=== PATIENT | male | born 1950 | race Caucasian/White ===

== ENCOUNTER 2017-05-31 18:52 | Emergency (ER) | payer OTHER ==
[~2017-05-31] VITALS: Ht 182.9 cm; Wt 88.0 kg
[~2017-05-31 18:52] MED LIST: CRD4 PO; METO25TA56 PO; MINO100C22 PO; SILD1TAB11 PO
[2017-05-31 19:55] VITALS: TEMP 37; Ht 182.9 cm; Wt 88.0 kg
[2017-05-31] MEDS ORDERED: SODIUM CHLORIDE 0.9% 1000ML 500 ML IV ONE (20:44)
[2017-05-31] MEDS ORDERED: HYDR2.5C37 TOP (21:01)
[2017-05-31] MEDS ORDERED: DOXA4TAB2 PO (21:01)
[2017-05-31] MEDS ORDERED: SULF800T23 PO (21:01)
[2017-05-31] MEDS ORDERED: SILD100T PO (21:02)
[2017-05-31] MEDS ORDERED: MULT-513 PO (21:02)
[2017-05-31 21:17] LABS: HEMATOCRIT 40.1 % (42-52); MEAN CELL VOLUME 91.1 fL (80-100); MEAN CORPUSCULAR HEMOGLOBIN 31.6 pg (25-34); MEAN CORPUSCULAR HGB CONC 34.7 g/dl (32-36); MEAN PLATELET VOLUME 9.9 fL (7.4-10.4); PLATELET COUNT 204 K/uL (130-400); WHITE BLOOD COUNT 9.94 K/uL (4.8-10.8)
[2017-05-31 21:19] LABS: MANUAL MICROSCOPIC REQUIRED? NO; REVIEW REQ? NO; URINE APPEARANCE CLEAR (CLEAR); URINE BILIRUBIN NEG (NEG); URINE COLOR YELLOW; URINE NITRITE NEG (NEG); URINE SPECIFIC GRAVITY 1.016 (1.000-1.030); UROBILINOGEN NEG (NEG); ZZUR CULT IF INDIC CLEAN CATCH NO
[2017-05-31 21:44] LABS: BUN/CREATININE RATIO 19.2 (10-20); CALCIUM 9.2 mg/dl (8.5-10.1); CREATININE 1.4 mg/dl (0.60-1.40); POTASSIUM 4.2 mmol/L (3.5-5.1)
--- NOTE | 2017-05-31 22:12 | DIAGNOSTIC IMAGING REPORT ---
ABD/PELVIS WITHOUT FOR STONE CLINICAL HISTORY: 67 years-old Male presenting with left flank pain, hx stones. TECHNIQUE: Multidetector CT of the abdomen and pelvis was performed without the use of intravenous contrast. IV contrast: None. A dose lowering technique was used consistent with the principles of ALARA (as low as reasonably achievable). COMPARISON: 07/05/2010. CT DOSE (mGy.cm): The estimated cumulative dose is 418.04 mGy.cm. FINDINGS: Retail Project Merchandiser topogram: Unremarkable. Lung bases: Minimal dependent changes likely atelectasis. 3 mm solid pulmonary nodule in the left lower lobe (series 3 image 2). Normal heart size. No pericardial or pleural effusion. Liver: Normal morphology. Normal density. Biliary: Prominence of the central intrahepatic and extrahepatic bile ducts likely a consequence of a reservoir effect in the post cholecystectomy state. Gallbladder surgically absent. Pancreas: Mild parenchymal atrophy. Previously noted acute pancreatic fluid collections/walled off the gross this are no longer present. No peripancreatic fat stranding to suggest pancreatitis. Coarse calcification in the pancreatic head/uncinate may relate to chronic pancreatitis. Spleen: Normal noncontrast appearance. Adrenal glands: Normal noncontrast appearance. Kidneys and ureters: Left renal collecting system is dilated with left perinephric fat stranding. Obstructing 4 mm calculus at the left ureterovesical junction with mild dilatation of the left ureter and periureteral fat stranding. No additional left renal calculus is noted. Right extrarenal pelvis. Punctate nonobstructing right renal calculus in the interpolar region. Right ureter normal. Bladder: No bladder calculus. Bladder normal. Pelvic organs: Prostate enlargement likely secondary to benign prostatic hyperplasia. Bowel: Diverticulosis of the sigmoid colon with associated wall thickening consistent with chronic diverticular disease. No pericolonic fat infiltration to suggest diverticulitis. Normal appendix. No bowel obstruction. Peritoneal cavity: No free fluid or intraperitoneal gas. Vasculature: Atherosclerosis of the normal caliber abdominal aorta. Lymph nodes: No gross lymphadenopathy allowing for noncontrast technique. Abdominal wall: Postsurgical changes of the midline ventral hernia repair. Small fat-containing umbilical hernia. Postsurgical changes of right inguinal hernia repair. Musculoskeletal: Degenerative changes of the spine. IMPRESSION: 1. Obstructing 4 mm calculus at the left ureterovesical junction with resultant left hydroureteronephrosis. 2. 3 mm solid pulmonary nodule in the left lower lobe. Follow-up per Sebastian Society 2017 recommendations below. Please refer to below summary of Fleischner Society 2017 recommendations for follow-up of incidental CT nodules (Chandler Levy et al. Guidelines for management of incidental pulmonary nodules detected on CT images: From the Fleischner Society 2017. Radiology 2017; 284: 228-243.) SOLID NODULES Single nodule; size < 6 mm * Low risk patients: No routine follow-up * High risk patients: Optional CT at 12 months Single nodule; size 6-8 mm * Low risk patients: CT at 6-12 months, then consider CT at 18-24 months * High risk patients: CT at 6-12 months, then at 18-24 months Single nodule; size > 8 mm * Either low or high risk patients: Considered CT at 3 months, PET/CT, or tissue sampling Multiple nodules; size < 6 mm * Low risk patients: No routine follow up * High risk patients: Optional CT at 12 months Multiple nodules; size 6-8 mm * Low risk patients: CT at 3-6 months, then consider CT at 18-24 months * High risk patients: CT at 3-6 months, then at 18-24 months Multiple nodules; size > 8 mm * Low risk patients: CT at 3-6 months, then consider at 18-24 months * High risk patients: CT at 3-6 months, then at 18-24 months Note: These guidelines apply to incidental nodules. These guidelines do not apply to patients younger than 35 years, immunocompromised patients, or patients with cancer. * Low risk patients: Minimal or absent history of smoking and/or other known risk factors * High risk patients: History of smoking, exposure to other carcinogens, emphysema, fibrosis, upper lobe location, family history of lung cancer, etc. * If a nodule up to 8 mm is partly solid or is ground glass, further follow-up is required after 24 months to exclude possible slow growing adenocarcinoma. SUBSOLID NODULES Single ground-glass nodule * Nodule size < 6 mm: No routine follow-up * Nodule size > or = 6 mm: CT at 6-12 months to confirm persistence, then CT every 2 years until 5 years Single part-solid nodule * Nodule size < 6 mm: No routine follow-up * Nodules size > or = 6 mm: CT at 3-6 months to confirm persistence. If unchanged and solid component remains < 6 mm, annual CT should be performed for 5 years Multiple nodules * Nodule size < 6 mm: CT at 3-6 months. If stable, consider CT at 2 and 4 years. * Nodules size > or = 6 mm: CT at 3-6 months. Subsequent management based on the most suspicious nodule(s) Electronically signed by: Raffi George M.D. 05/31/2017 10:11 PM Dictated Date/Time: 05/31/2017 10:04 PM
[2017-05-31] MEDS ORDERED: OXYCODONE IR HOME PACK PO ONE (22:45)
[2017-05-31] MEDS ORDERED: ONDANSETRON HOME PACK 4MG OD TAB PO ONE (22:45)
[2017-05-31] MEDS ORDERED: TAMSULOSIN HCL 0.4 MG CAP PO ONE (22:45)
[2017-05-31] MEDS ORDERED: OXYC1TAB3 PO (22:47)
[2017-05-31] MEDS ORDERED: ONDA4TAB10 SL (22:47)
[2017-05-31] MEDS ORDERED: TAMS0.4C38 PO (22:47)
--- NOTE | 2017-05-31 22:49 | EMERGENCY ROOM VISIT NOTE ---
History First contact with patient: 21:10 Chief Complaint: KIDNEY STONE Stated Complaint: KIDNEY STONE History of Present Illness The patient is a 67 year old male who presents to the Emergency Room with complaints of left flank pain which began 2 nights ago. The patient states that he had severe left flank pain at that time. He states that his symptoms improved, but worsened again today. He has had pain in the left side of the back. The pain does not radiate anywhere. He denies nausea or vomiting. He denies any urinary symptoms. The patient reports a history of kidney stones and feels similar. He has seen [facility] urology in the past, but has not seen them for several years. The patient also reports a history of pancreatitis. He denies fevers/chills, chest pain or shortness of breath. He denies changes in bowel movements. Review of Systems A complete 10 point review of systems was reviewed with the patient with pertinent positives and negatives as per history of present illness. All else were negative. Past Medical/Surgical History Medical Problems: (1) Acute Renal Failure, Unspecified (2) Esophageal Reflux (3) Hypertension Nos (4) Unilat Inguinal Hernia Family History Cancer Heart disease Hypertension Stroke Social History Smoking Status: Never Smoker Marital Status: Housing Status: lives with family Occupation Status: retired Current/Historical Medications Scheduled Doxazosin Mesylate (Cardura), 4 MG PO HS Metoprolol Tartrate (Lopressor) (Lopressor), 12.5 MG PO DAILY Multivitamins/Minerals (Mvi With Minerals), 1 TAB PO DAILY Ondasetron Odt (Zofran Odt), 4 MG SL Q6H Sildenafil Citrate (Viagra), 100 MG PO PRN Sulfa/Trimethoprim (Bactrim Ds 800MG/160MG), 1 TAB PO BID Tamsulosin Hcl (Flomax), 1 CAP PO DAILY Scheduled PRN Hydrocortisone 2.5% (Rectal) (Anusol-Hc 2.5%), 1 APPLN TOP BID PRN for Hemorrhoids Oxycodone Ir (Roxicodone Ir), 1-2 TAB PO Q4H PRN for Pain Physical Exam Vital Signs Date Time Temp Pulse Resp B/P (MAP) Pulse Ox O2 Delivery O2 Flow Rate FiO2 05/31/17 23:09 63 18 142/93 96 Room Air 05/31/17 21:15 55 20 142/81 97 Room Air 05/31/17 19:55 37.0 55 20 155/86 97 Room Air Physical Exam VITALS: Vitals are noted on the nurse's note and reviewed by myself. Vital signs stable. GENERAL: This is a 67-year-old male, in no acute distress, nondiaphoretic, well- developed well-nourished. HEART: Regular rate and rhythm without murmurs gallops or rubs. LUNGS: Clear to auscultation bilaterally without wheezes, rales or rhonchi. ABDOMEN: Positive bowel sounds x 4. Soft, nontender to palpation. MUSCULOSKELETAL: Left CVA tenderness. NEURO: Patient was alert and oriented to person place and time. Medical Decision & Procedures ER Provider Diagnostic Interpretation: ABD/PELVIS WITHOUT FOR STONE FINDINGS: Sql Bi Developer topogram: Unremarkable. Lung bases: Minimal dependent changes likely atelectasis. 3 mm solid pulmonary nodule in the left lower lobe (series 3 image 2). Normal heart size. No pericardial or pleural effusion. Liver: Normal morphology. Normal density. Biliary: Prominence of the central intrahepatic and extrahepatic bile ducts likely a consequence of a reservoir effect in the post cholecystectomy state. Gallbladder surgically absent. Pancreas: Mild parenchymal atrophy. Previously noted acute pancreatic fluid collections/walled off the gross this are no longer present. No peripancreatic fat stranding to suggest pancreatitis. Coarse calcification in the pancreatic head/uncinate may relate to chronic pancreatitis. Spleen: Normal noncontrast appearance. Adrenal glands: Normal noncontrast appearance. Kidneys and ureters: Left renal collecting system is dilated with left perinephric fat stranding. Obstructing 4 mm calculus at the left ureterovesical junction with mild dilatation of the left ureter and periureteral fat stranding. No additional left renal calculus is noted. Right extrarenal pelvis. Punctate nonobstructing right renal calculus in the interpolar region. Right ureter normal. Bladder: No bladder calculus. Bladder normal. Pelvic organs: Prostate enlargement likely secondary to benign prostatic hyperplasia. Bowel: Diverticulosis of the sigmoid colon with associated wall thickening consistent with chronic diverticular disease. No pericolonic fat infiltration to suggest diverticulitis. Normal appendix. No bowel obstruction. Peritoneal cavity: No free fluid or intraperitoneal gas. Vasculature: Atherosclerosis of the normal caliber abdominal aorta. Lymph nodes: No gross lymphadenopathy allowing for noncontrast technique. Abdominal wall: Postsurgical changes of the midline ventral hernia repair. Small fat-containing umbilical hernia. Postsurgical changes of right inguinal hernia repair. Musculoskeletal: Degenerative changes of the spine. IMPRESSION: 1. Obstructing 4 mm calculus at the left ureterovesical junction with resultant left hydroureteronephrosis. 2. 3 mm solid pulmonary nodule in the left lower lobe. Follow-up per Sebastian Society 2017 recommendations below. Laboratory Results 05/31/17 21:00 05/31/17 21:00 Test 05/31/17 21:00 Red Blood Count 4.40 M/uL (4.7-6.1) Mean Corpuscular Volume 91.1 fL (80-100) Mean Corpuscular Hemoglobin 31.6 pg (25-34) Mean Corpuscular Hemoglobin Concent 34.7 g/dl (32-36) RDW Standard Deviation 43.1 fL (36.4-46.3) RDW Coefficient of Variation 12.8 % (11.5-14.5) Mean Platelet Volume 9.9 fL (7.4-10.4) Urine Color YELLOW Urine Appearance CLEAR (CLEAR) Urine pH 7.0 (4.5-7.5) Urine Specific Model 1.016 (1.000-1.030) Urine Protein NEG (NEG) Urine Glucose (UA) NEG (NEG) Urine Ketones NEG (NEG) Urine Occult Blood 3+ (NEG) Urine Nitrite NEG (NEG) Urine Bilirubin NEG (NEG) Urine Urobilinogen NEG (NEG) Urine Leukocyte Esterase TRACE (NEG) Urine WBC (Auto) 1-5 /hpf (0-5) Urine RBC (Auto) 10-30 /hpf (0-4) Urine Hyaline Casts (Auto) 0 /lpf (0-5) Urine Epithelial Cells (Auto) 5-10 /lpf (0-5) Urine Bacteria (Auto) NEG (NEG) Anion Gap 7.0 mmol/L (3-11) Est Creatinine Clear Calc Drug Dose 56.2 ml/min Estimated GFR () 59.8 Estimated GFR (Non- 51.6 BUN/Creatinine Ratio 19.2 (10-20) Calcium Level 9.2 mg/dl (8.5-10.1) Total Bilirubin 0.5 mg/dl (0.2-1) Direct Bilirubin 0.1 mg/dl (0-0.2) Aspartate Amino Transf (AST/SGOT) 21 U/L (15-37) Alanine Aminotransferase (ALT/SGPT) 25 U/L (12-78) Alkaline Phosphatase 74 U/L (45-117) Total Protein 7.6 gm/dl (6.4-8.2) Albumin 4.1 gm/dl (3.4-5.0) Medications Administered Medications (Trade) Dose Ordered Sig/Quintin Route Start Time Stop Time Status Last Admin Dose Admin Sodium Chloride 500 ml @ 999 mls/hr Q31M ONCE IV 05/31/17 20:44 05/31/17 21:14 DC 05/31/17 21:12 999 MLS/HR Oxycodone HCl (Roxicodone Immediate Rel 5MG Home Pack) 1 homepack UD ONCE PO 05/31/17 22:45 05/31/17 22:46 DC 05/31/17 23:06 1 HOMEPACK Ondansetron HCl (ZOFRAN ODT 4MG Home Pack) 1 homepack UD ONCE PO 05/31/17 22:45 05/31/17 22:46 DC 05/31/17 23:06 1 HOMEPACK Tamsulosin HCl (Flomax Cap) 0.4 mg NOW ONCE PO 05/31/17 22:45 05/31/17 22:46 DC 05/31/17 23:06 0.4 MG ED Course The patient was evaluated as above. Labs were drawn and IV access was obtained. Patient was reevaluated and findings were discussed. Discharge instructions were reviewed with the patient. The patient verbalized understanding of my assessment and treatment plan and was discharged home in good condition. Medical Decision Differential diagnosis includes kidney stone, pyelonephritis, muscle strain, gastroenteritis, colitis, diverticulitis, cholecystitis, among others. The patient is a 67-year-old male who presents today complaining of left flank pain. Labs revealed no leukocytosis, anemia or concerning electrolyte abnormalities. Urinalysis was not suggestive of infection. Urine did show 3+ blood. CT of the abdomen and pelvis was performed and read by radiology and revealed a 4 mm stone at the left UVJ. Patient was informed of this finding. He is given home packs and prescriptions for Zofran and OxyIR. He was given a dose of Flomax. He was given information for urology follow-up. He was advised he may return at any time if his pain becomes unmanageable at home. Based on the patient's presentation and work up, I feel the patient is stable for outpatient treatment. The patient was educated to return to the emergency department for any worsening of their current condition or new/concerning symptoms. He will follow up with his primary care provider and urologist. [place] [facility] Monitoring Program Search Results: patient reviewed within database Medication Reconcilliation Current Medication List: was personally reviewed by me Blood Pressure Screening Patient's blood pressure: Elevated blood pressure Blood pressure disposition: Elevated BP felt to be situational Impression Primary Impression: Ureteral stone Departure Information Dispostion Home / Self-Care Condition GOOD Prescriptions Tamsulosin Hcl (FLOMAX) 0.4 Mg Cap 1 CAP PO DAILY for 14 Days, #14 CAP Prov: Cindi Molina PA-C 05/31/17 Ondasetron Odt (ZOFRAN ODT) 4 Mg Tab 4 MG SL Q6H for Nausea, #20 TAB Prov: Cindi Molina PA-C 05/31/17 Oxycodone Ir (Roxicodone Ir) 5 Mg Tab 1-2 TAB PO Q4H Y for Pain, #20 TAB For Initial Treatment Prov: Cindi Molina PA-C 05/31/17 Referrals No Doctor, Assigned (PCP) Lilly Sherman MD Patient Instructions [facility] Additional Instructions You have been treated in the Emergency Department today for a Kidney Stone ( Nephrolithiasis). You have been prescribed Oxy IR to be used for pain control. This is a narcotic medication. You cannot drive or consume alcohol while on this medicine. This medicine should only be used for pain that cannot be controlled with over-the- counter pain medicines. You have been prescribed Zofran to be used for any nausea or vomiting. Take as prescribed. You have been prescribed Flomax 0.4 mg to be taken ONCE daily. This medicine has been prescribed as it can help relax the smooth muscles of the urinary tract increasing transit time of the kidney stone. For pain control, you can use the following [id number] medicines (if >12 yo): - Regular strength (325mg/tab) Tylenol (acetaminophen) 2 tabs every 4-6 hours as needed. Do not exceed 12 tablets in a 24 hour period. Avoid taking more than 4 grams (4000 mg) of Tylenol per day. This includes any other sources of acetaminophen you may take on a regular basis. - Regular strength (200 mg/tab) Advil (ibuprofen) 1-2 tabs every 4-6 hours as needed. Do not exceed a dose of 3200 mg per day. You have been provided a strainer and specimen collection cup. You should strain your urine to collect any passed stones. Your stones can be placed into the specimen cup and taken to your Urologist for further evaluation. You have been provided the contact information for [facility]. Contact a urologist if you are still having any symptoms in the next week. Return to the Emergency Department if your symptoms persist despite the treatment plan outlined above or if you develop the following symptoms: intractable pain, fever, chills, or large amounts of blood in your urine.
[2017-05-31 23:09] VITALS: BP 142/93; PULSE 63; O2SAT 96
== END 2017-05-31 23:13 | disposition home or self-care (01) ==
LOC: C.EDB 18:53 → C.EDA 23:13
DX: N21.1 Calculus in urethra (principal); N19 Unspecified kidney failure; K21.9 Gastro-esophageal reflux disease without esophagitis; I10 Essential (primary) hypertension; Z82.49 Family history of ischemic heart disease and other diseases of the circulatory system; Z82.3 Family history of stroke

== ENCOUNTER 2017-06-17 08:33 | Inpatient (IN) | payer OTHER ==
[~2017-06-17] VITALS: Ht 182.9 cm; Wt 88.2 kg
[~2017-06-17 08:33] MED LIST changes: -CRD4 PO; +DOXA4TAB2 PO; +HYDR2.5C37 TOP; -MINO100C22 PO; +MULT-513 PO; +ONDA4TAB10 SL; +OXYC1TAB3 PO; +SILD100T PO; -SILD1TAB11 PO; +SULF800T23 PO
[2017-06-17] MEDS ORDERED: MoRPHine SULFATE 4 MG/ML 1 ML CARP\\VIAL IV STA ×2 (09:06→10:06)
[2017-06-17] MEDS ORDERED: ONDANSETRON INJ 2 MG/ML 2 ML VIAL IV STA (09:06)
[2017-06-17] MEDS ORDERED: OPTIRAY 320 IV PRN (09:30)
[2017-06-17 09:47] LABS: BASO % 0.2 %; BASO ABS # 0.02 K/uL (0-0.2); COMPLETE YES; EOS % 0.6 %; HEMATOCRIT 43.9 % (42-52); IG% 0.1 %; LYMPH ABS # 0.88 K/uL (1.2-3.4); MEAN CORPUSCULAR HEMOGLOBIN 31.8 pg (25-34); MEAN CORPUSCULAR HGB CONC 35.3 g/dl (32-36); MEAN PLATELET VOLUME 9.7 fL (7.4-10.4); MONO % 4.4 %; NEUT % 84.7 %; PLATELET COUNT 169 K/uL (130-400); RED BLOOD COUNT 4.88 M/uL (4.7-6.1); WHITE BLOOD COUNT 8.83 K/uL (4.8-10.8)
[2017-06-17 10:04] LABS: ALT/SGPT 29 U/L (12-78); BLOOD UREA NITROGEN 24 mg/dl (7-18); BUN/CREATININE RATIO 20.1 (10-20); CALCIUM 9.1 mg/dl (8.5-10.1); CARBON DIOXIDE 26 mmol/L (21-32); CHLORIDE 109 mmol/L (98-107); GLUCOSE 109 mg/dl (70-99); MAGNESIUM 2.2 mg/dl (1.8-2.4); POTASSIUM 4.4 mmol/L (3.5-5.1); SODIUM 140 mmol/L (136-145)
[2017-06-17 10:10] LABS: ALB/GLOB RATIO 1.2 (0.9-2); ALKALINE PHOSPHATASE 72 U/L (45-117); AST/SGOT 24 U/L (15-37); CKMB/CK RATIO 1.1 (0-3.0)
[2017-06-17] MEDS ORDERED: HYDROmorphone INJ 1 MG/ML SYR IV STA (10:37)
--- NOTE | 2017-06-17 12:22 | DIAGNOSTIC IMAGING REPORT ---
ABD/PELVIS IV AND ORAL CONT CLINICAL HISTORY: 67 years-old Male presenting with Epigastric abdominal pain radiating inferiorly, history of pancreatitis. TECHNIQUE: Multidetector CT of the abdomen and pelvis was performed after the administration of oral and intravenous contrast. IV contrast: 93 mL of Optiray 320. A dose lowering technique was used consistent with the principles of ALARA (as low as reasonably achievable). COMPARISON: 05/31/2017. CT DOSE (mGy.cm): The estimated cumulative dose is 482.79 mGy.cm. FINDINGS: Parts Consultant topogram: Cholecystectomy clips. Lung bases: 3 mm solid pulmonary nodule in the left lower lobe again noted. Aortic valve calcification. Normal heart size. No pericardial or pleural effusion. Liver: Normal morphology. No liver lesion. Patent hepatic vasculature. Biliary: Interval development of diffuse mild intrahepatic biliary ductal dilatation. The common duct is also slightly dilated to the level of the pancreatic head. Gallbladder surgically absent. Pancreas: Interval development of peripancreatic fluid and inflammatory change with heterogeneity and expansion of the pancreatic parenchyma. A focal hypodense region in the anterior pancreatic head (series 2 image 33) was likely present on prior exam and is not convincing for an pancreatic parenchymal collection. Few foci of calcification within the uncinate the pancreatic head likely indicating a history of chronic pancreatitis. No significant pancreatic ductal dilatation. Spleen: Normal. Splenule noted. Splenic artery and vein patent. Adrenal glands: Normal. Kidneys and ureters: Well-defined hypodensity in the right kidney compatible with simple cyst. No hydronephrosis. Normal ureters. Bladder: Mild circumferential bladder wall thickening. No perivesicular inflammatory change. Pelvic organs: Prostate enlargement likely secondary to benign prostatic hyperplasia. Postsurgical changes of vasectomy suspected. Bowel: Diverticulosis with wall thickening of the sigmoid colon likely indicating chronic diverticular disease. Mild wall thickening of the hepatic flexure is most likely secondary. Wall thickening of the descending portion of the duodenum also likely secondary. Appendix normal. No bowel obstruction. Duodenal diverticulum noted posterior to the uncinate process of the pancreas. Peritoneal cavity: Small amount of retroperitoneal fluid in the periduodenal region emanating from the pancreas. No free intraperitoneal fluid or gas. Lymph nodes: No enlarged lymph nodes in the abdomen or pelvis. Vasculature: Atherosclerosis of the normal caliber abdominal aorta. IVC patent. Abdominal wall: Postsurgical changes from prior right hernia repair. Postsurgical changes from ventral abdominal wall hernia repair in the upper gastric and. Musculoskeletal: Degenerative changes of the spine. IMPRESSION: 1. Interval development of interstitial edematous pancreatitis. No focal acute peripancreatic fluid collection. No convincing evidence of necrosis on the current exam. Significant surrounding inflammatory change with wall thickening of the duodenum. 2. Interval development of biliary ductal dilatation could be secondary to inflammatory change in the pancreas. An obstructing common duct calculus cannot be excluded as etiology of both bladder ductal dilatation and pancreatitis. If there is clinical concern, MRCP could be obtained. 3. 3 mm solid pulmonary nodule in the left lower lobe as on prior exam. Follow-up per Sebastian Society 2017 recommendations as on prior exam. Please refer to below summary of Fleischner Society 2017 recommendations for follow-up of incidental CT nodules (Chandler Levy et al. Guidelines for management of incidental pulmonary nodules detected on CT images: From the Fleischner Society 2017. Radiology 2017; 284: 228-243.) SOLID NODULES Single nodule; size < 6 mm * Low risk patients: No routine follow-up * High risk patients: Optional CT at 12 months Single nodule; size 6-8 mm * Low risk patients: CT at 6-12 months, then consider CT at 18-24 months * High risk patients: CT at 6-12 months, then at 18-24 months Single nodule; size > 8 mm * Either low or high risk patients: Considered CT at 3 months, PET/CT, or tissue sampling Multiple nodules; size < 6 mm * Low risk patients: No routine follow up * High risk patients: Optional CT at 12 months Multiple nodules; size 6-8 mm * Low risk patients: CT at 3-6 months, then consider CT at 18-24 months * High risk patients: CT at 3-6 months, then at 18-24 months Multiple nodules; size > 8 mm * Low risk patients: CT at 3-6 months, then consider at 18-24 months * High risk patients: CT at 3-6 months, then at 18-24 months Note: These guidelines apply to incidental nodules. These guidelines do not apply to patients younger than 35 years, immunocompromised patients, or patients with cancer. * Low risk patients: Minimal or absent history of smoking and/or other known risk factors * High risk patients: History of smoking, exposure to other carcinogens, emphysema, fibrosis, upper lobe location, family history of lung cancer, etc. * If a nodule up to 8 mm is partly solid or is ground glass, further follow-up is required after 24 months to exclude possible slow growing adenocarcinoma. SUBSOLID NODULES Single ground-glass nodule * Nodule size < 6 mm: No routine follow-up * Nodule size > or = 6 mm: CT at 6-12 months to confirm persistence, then CT every 2 years until 5 years Single part-solid nodule * Nodule size < 6 mm: No routine follow-up * Nodules size > or = 6 mm: CT at 3-6 months to confirm persistence. If unchanged and solid component remains < 6 mm, annual CT should be performed for 5 years Multiple nodules * Nodule size < 6 mm: CT at 3-6 months. If stable, consider CT at 2 and 4 years. * Nodules size > or = 6 mm: CT at 3-6 months. Subsequent management based on the most suspicious nodule(s) Electronically signed by: Raffi George M.D. 06/17/2017 12:20 PM Dictated Date/Time: 06/17/2017 12:10 PM
[2017-06-17] MEDS ORDERED: SODIUM CHLORIDE 0.9% 1000ML 1,000 ML IV STA (13:18)
[2017-06-17] MEDS ORDERED: ONDANSETRON INJ 2 MG/ML 2 ML VIAL IV PRN (14:45)
--- NOTE | 2017-06-17 14:50 | History and Physical ---
History & Physical Date & Time of Service: Jun 17, 2017 at 14:50 Chief Complaint: Stomach Pain Primary Care Physician: No Doctor, Assigned History of Present Illness Source: patient, spouse, clinic records, hospital records 67 year old male with PMH of pancreatitis presents to the Emergency Room with complaints of abdominal pain. Pt said that he has been having mid gastric abdominal pain for the past month. He said that he saw GI about 1 month ago and at that time his lipase was normal. Pt said that he woke this morning around 4 AM with epigastric abdominal pain that radiates inferiorly. He rates the pain as a 7/10 currently. he tried Gas-X without relief. Pt said that in the past he had multiple admission for pancreatitis. He said that he received dilaudid in the ER that helped with the pain. Denies any chest pain, palpitation, dizziness, palpitation, SOB, nausea and vomiting. Family History Cancer Heart disease Hypertension Stroke Social History Smoking Status: Never Smoker Marital Status: Occupational Status: retired Immunizations History of Influenza Vaccine: Yes Influenza Vaccine Date: Jun 27, 2010 History of Tetanus Vaccine?: Yes Tetanus Immunization Date: Dec 03, 2009 History of Pneumococcal: Unknown History of Hepatitis B Vaccine: Unknown Multi-Drug Resistant Organisms History of MDRO: No Allergies Coded Allergies: Simvastatin (Verified Allergy, Unknown, UNKNOWN RXN TO [facility], 06/17/17) Home Medications Scheduled Doxazosin Mesylate (Cardura), 4 MG PO HS Metoprolol Tartrate (Lopressor) (Lopressor), 12.5 MG PO DAILY Multivitamins/Minerals (Mvi With Minerals), 1 TAB PO DAILY Sildenafil Citrate (Viagra), 100 MG PO PRN Sulfa/Trimethoprim (Bactrim Ds 800MG/160MG), 1 TAB PO DAILY Scheduled PRN Hydrocortisone 2.5% (Rectal) (Anusol-Hc 2.5%), 1 APPLN TOP BID PRN for Hemorrhoids Review of Systems Constitutional: No fever, No chills Eyes: No eye pain, No discharge Respiratory: No cough, No sputum, No shortness of breath Cardiovascular: No chest pain, No orthopnea Abdomen: + pain, No vomiting Musculoskeletal: No calf pain Genitourinary - Male: No hematuria, No dysuria Neurologic: No memory loss Psychiatric: No anxiety, No substance abuse Endocrine: No fatigue Hematologic / Lymphatic: No night sweats Integumentary: No rash, No itch Physical Exam Vital Signs Date Time Temp Pulse Resp B/P (MAP) Pulse Ox O2 Delivery O2 Flow Rate FiO2 06/17/17 14:31 55 18 137/80 99 Room Air 06/17/17 13:45 53 18 128/68 99 Room Air 06/17/17 13:03 49 06/17/17 12:48 50 16 112/62 95 Room Air 06/17/17 11:41 50 16 115/61 95 Room Air 06/17/17 10:48 51 18 139/78 95 Room Air 06/17/17 10:12 96 Room Air 06/17/17 09:46 52 06/17/17 08:37 36.5 56 18 142/89 97 Room Air General Appearance: WD/WN, no apparent distress Head: normocephalic Eyes: PERRL, EOMI ENT: hearing grossly normal Neck: supple, no JVD Respiratory/Chest: lungs clear, normal breath sounds, no respiratory distress Cardiovascular: regular rate, rhythm, no JVD, no murmur Abdomen/GI: normal bowel sounds, + tenderness Back: no CVA tenderness Extremities/Musculoskelatal: no calf tenderness Neurologic/Psych: no motor/sensory deficits, oriented x 3 Skin: warm/dry, no rash Diagnostics Laboratory Results Results Past 24 Hours Test 06/17/17 09:25 Range/Units White Blood Count 8.83 4.8-10.8 K/uL Red Blood Count 4.88 4.7-6.1 M/uL Hemoglobin 15.5 14.0-18.0 g/dL Hematocrit 43.9 42-52 % Mean Corpuscular Volume 90.0 80-100 fL Mean Corpuscular Hemoglobin 31.8 25-34 pg Mean Corpuscular Hemoglobin Concent 35.3 32-36 g/dl Platelet Count 169 130-400 K/uL Mean Platelet Volume 9.7 7.4-10.4 fL Neutrophils (%) (Auto) 84.7 % Lymphocytes (%) (Auto) 10.0 % Monocytes (%) (Auto) 4.4 % Eosinophils (%) (Auto) 0.6 % Basophils (%) (Auto) 0.2 % Neutrophils # (Auto) 7.48 1.4-6.5 K/uL Lymphocytes # (Auto) 0.88 1.2-3.4 K/uL Monocytes # (Auto) 0.39 0.11-0.59 K/uL Eosinophils # (Auto) 0.05 0-0.5 K/uL Basophils # (Auto) 0.02 0-0.2 K/uL RDW Standard Deviation 42.2 36.4-46.3 fL RDW Coefficient of Variation 12.8 11.5-14.5 % Immature Granulocyte % (Auto) 0.1 % Immature Granulocyte # (Auto) 0.01 0.00-0.02 K/uL Prothrombin Time 11.0 9.0-12.0 SECONDS Prothromb Time International Ratio 1.0 0.9-1.1 Activated Partial Thromboplast Time 27.1 21.0-31.0 SECONDS Partial Thromboplastin Ratio 1.0 Sodium Level 140 136-145 mmol/L Potassium Level 4.4 3.5-5.1 mmol/L Chloride Level 109 98-107 mmol/L Carbon Dioxide Level 26 21-32 mmol/L Anion Gap 5.0 3-11 mmol/L Blood Urea Nitrogen 24 7-18 mg/dl Creatinine 1.20 0.60-1.40 mg/dl Est Creatinine Clear Calc Drug Dose 65.6 ml/min Estimated GFR () 72.1 Estimated GFR (Non- 62.2 BUN/Creatinine Ratio 20.1 10-20 Random Glucose 109 70-99 mg/dl Calcium Level 9.1 8.5-10.1 mg/dl Magnesium Level 2.2 1.8-2.4 mg/dl Total Bilirubin 0.5 0.2-1 mg/dl Aspartate Amino Transf (AST/SGOT) 24 15-37 U/L Alanine Aminotransferase (ALT/SGPT) 29 12-78 U/L Alkaline Phosphatase 72 45-117 U/L Total Creatine Kinase 164 39-308 U/L Creatine Kinase MB 1.8 0.5-3.6 ng/ml Creatine Kinase MB Ratio 1.1 0-3.0 Troponin I < 0.015 0-0.045 ng/ml Total Protein 7.3 6.4-8.2 gm/dl Albumin 3.9 3.4-5.0 gm/dl Globulin 3.4 2.5-4.0 gm/dl Albumin/Globulin Ratio 1.2 0.9-2 Lipase 54985 73-393 U/L Diagnostic Radiology ABD/PELVIS IV AND ORAL CONT CLINICAL HISTORY: 67 years-old Male presenting with Epigastric abdominal pain radiating inferiorly, history of pancreatitis. TECHNIQUE: Multidetector CT of the abdomen and pelvis was performed after the administration of oral and intravenous contrast. IV contrast: 93 mL of Optiray 320. A dose lowering technique was used consistent with the principles of ALARA (as low as reasonably achievable). COMPARISON: 05/31/2017. CT DOSE (mGy.cm): The estimated cumulative dose is 482.79 mGy.cm. FINDINGS: Medical Receptionist Medical Assistant topogram: Cholecystectomy clips. Lung bases: 3 mm solid pulmonary nodule in the left lower lobe again noted. Aortic valve calcification. Normal heart size. No pericardial or pleural effusion. Liver: Normal morphology. No liver lesion. Patent hepatic vasculature. Biliary: Interval development of diffuse mild intrahepatic biliary ductal dilatation. The common duct is also slightly dilated to the level of the pancreatic head. Gallbladder surgically absent. Pancreas: Interval development of peripancreatic fluid and inflammatory change with heterogeneity and expansion of the pancreatic parenchyma. A focal hypodense region in the anterior pancreatic head (series 2 image 33) was likely present on prior exam and is not convincing for an pancreatic parenchymal collection. Few foci of calcification within the uncinate the pancreatic head likely indicating a history of chronic pancreatitis. No significant pancreatic ductal dilatation. Spleen: Normal. Splenule noted. Splenic artery and vein patent. Adrenal glands: Normal. Kidneys and ureters: Well-defined hypodensity in the right kidney compatible with simple cyst. No hydronephrosis. Normal ureters. Bladder: Mild circumferential bladder wall thickening. No perivesicular inflammatory change. Pelvic organs: Prostate enlargement likely secondary to benign prostatic hyperplasia. Postsurgical changes of vasectomy suspected. Bowel: Diverticulosis with wall thickening of the sigmoid colon likely indicating chronic diverticular disease. Mild wall thickening of the hepatic flexure is most likely secondary. Wall thickening of the descending portion of the duodenum also likely secondary. Appendix normal. No bowel obstruction. Duodenal diverticulum noted posterior to the uncinate process of the pancreas. Peritoneal cavity: Small amount of retroperitoneal fluid in the periduodenal region emanating from the pancreas. No free intraperitoneal fluid or gas. Lymph nodes: No enlarged lymph nodes in the abdomen or pelvis. Vasculature: Atherosclerosis of the normal caliber abdominal aorta. IVC patent. Abdominal wall: Postsurgical changes from prior right hernia repair. Postsurgical changes from ventral abdominal wall hernia repair in the upper gastric and. Musculoskeletal: Degenerative changes of the spine. IMPRESSION: 1. Interval development of interstitial edematous pancreatitis. No focal acute peripancreatic fluid collection. No convincing evidence of necrosis on the current exam. Significant surrounding inflammatory change with wall thickening of the duodenum. 2. Interval development of biliary ductal dilatation could be secondary to inflammatory change in the pancreas. An obstructing common duct calculus cannot be excluded as etiology of both bladder ductal dilatation and pancreatitis. If there is clinical concern, MRCP could be obtained. 3. 3 mm solid pulmonary nodule in the left lower lobe as on prior exam. Follow-up per Sebastian Society 2017 recommendations as on prior exam. Please refer to below summary of Fleischner Society 2017 recommendations for follow-up of incidental CT nodules (Chandler Levy et al. Guidelines for management of incidental pulmonary nodules detected on CT images: From the Fleischner Society 2017. Radiology 2017; 284: 228-243.) SOLID NODULES Single nodule; size < 6 mm * Low risk patients: No routine follow-up * High risk patients: Optional CT at 12 months Single nodule; size 6-8 mm * Low risk patients: CT at 6-12 months, then consider CT at 18-24 months * High risk patients: CT at 6-12 months, then at 18-24 months Single nodule; size > 8 mm * Either low or high risk patients: Considered CT at 3 months, PET/CT, or tissue sampling Multiple nodules; size < 6 mm * Low risk patients: No routine follow up * High risk patients: Optional CT at 12 months Multiple nodules; size 6-8 mm * Low risk patients: CT at 3-6 months, then consider CT at 18-24 months * High risk patients: CT at 3-6 months, then at 18-24 months Multiple nodules; size > 8 mm * Low risk patients: CT at 3-6 months, then consider at 18-24 months * High risk patients: CT at 3-6 months, then at 18-24 months Note: These guidelines apply to incidental nodules. These guidelines do not apply to patients younger than 35 years, immunocompromised patients, or patients with cancer. * Low risk patients: Minimal or absent history of smoking and/or other known risk factors * High risk patients: History of smoking, exposure to other carcinogens, emphysema, fibrosis, upper lobe location, family history of lung cancer, etc. * If a nodule up to 8 mm is partly solid or is ground glass, further follow-up is required after 24 months to exclude possible slow growing adenocarcinoma. SUBSOLID NODULES Single ground-glass nodule * Nodule size < 6 mm: No routine follow-up * Nodule size > or = 6 mm: CT at 6-12 months to confirm persistence, then CT every 2 years until 5 years Single part-solid nodule * Nodule size < 6 mm: No routine follow-up * Nodules size > or = 6 mm: CT at 3-6 months to confirm persistence. If unchanged and solid component remains < 6 mm, annual CT should be performed for 5 years Multiple nodules * Nodule size < 6 mm: CT at 3-6 months. If stable, consider CT at 2 and 4 years. * Nodules size > or = 6 mm: CT at 3-6 months. Subsequent management based on the most suspicious nodule(s) Electronically signed by: Raffi George M.D. 06/17/2017 12:20 PM Dictated Date/Time: 06/17/2017 12:10 PM Impression Assessment and Plan Acute pancreatitis Present with epigastric abdominal pain with elevated Lipase Lipase on admission 16K CT abdomen showed interval development of interstitial edematous pancreatitis. No focal acute peripancreatic fluid collection. Interval development of biliary ductal dilatation could be secondary to inflammatory change in the pancreas Continue IVF Dilaudid for pain control and zofran Keep NPO for now Gastro consulted check lipase in am Left Lung nodule CT showed 3 mm solid pulmonary nodule in the left lower lobe as on prior exam Monitor as an outpatient HTN Controlle continue med Hx of folliculitis Has been taking Bactrim daily to prevent flare up DVT px on Lovenox Code status Full Code Level of Care Med/Surg Resuscitation Status FULL RESUSCITATION VTE Prophylaxis VTE Risk Assessment Done? Y/N: Yes Risk Level: Moderate Given or contraindicated: Enoxaparin (Lovenox)SQ
[2017-06-17] MEDS ORDERED: HYDROmorphone INJ 1 MG/ML SYR IV PRN (15:00)
[2017-06-17 16:04] VITALS: O2SAT 98
[2017-06-17 16:15] VITALS: BP 157/84; PULSE 48; TEMP 36.5; O2SAT 98; Ht 182.9 cm; Wt 88.2 kg
--- NOTE | 2017-06-17 16:22 | EMERGENCY ROOM VISIT NOTE ---
ED Visit Note First contact with patient: 08:51 I have personally evaluated this patient examined her and reviewed the pertinent labs and data. I have discussed the case with Sammy Hardin, the physician store administrative assistant and agree with the plan. Please refer to the PA note. This patient comes in after having epigastric pain. He does have a history of pancreatitis which he tells me is related his gallbladder which was removed. When I examined him, he was feeling more comfortable as he had received fluids and IV analgesics. He has a significant elevated lipase and the 16,000 range. On CAT scan, there are findings consistent with pancreatitis. He will be admitted for further inpatient treatment and evaluation.
[2017-06-17] MEDS ORDERED: METOPROLOL TARTRATE 25 MG TAB PO ONE (16:45)
[2017-06-17] MEDS: SODIUM CHLORIDE 0.9% 1000ML 1,000 ML IV SCH ×2 (16:46→23:31)
[2017-06-17] MEDS: ENOXAPARIN 40 MG/0.4 ML SYR SQ SCH (17:46)
[2017-06-17] MEDS: SULFAMETHOXAZOLE/TRIMETHOPRIM DS 800/160MG TAB PO SCH (18:14)
[2017-06-17] MEDS ORDERED: INFLUENZA ADMINISTRATION CHARGE ONE (18:30)
[2017-06-17] MEDS ORDERED: INFLUENZA VACCINE HIGH DOSE 65+ 0.5 ML SYR IM. ONE (18:30)
--- NOTE | 2017-06-17 18:33 | EMERGENCY ROOM VISIT NOTE ---
History First contact with patient: 08:51 Chief Complaint: ABDOMINAL PAIN Stated Complaint: ACUTE PANCREATITIS Nursing Triage Summary: triage note: pt reports mid abd pain since 0400 today. pt reports hx of pancreatitis "this doesn't feel like that." History of Present Illness The patient is a 67 year old male who presents to the Emergency Room via private vehicle accompanied by family with complaints of "abdominal pain". The patient states that he awoke this morning abruptly at 4 AM with epigastric abdominal pain that radiates inferiorly. He rates the pain as a 6/10 currently , but notes that it was an 8 and higher earlier. He is tried Gas-X without relief. He denies any chest pain, shortness of breath, fevers, chills. He denies any problems with urination or bowel movement. He denies any chest pain. He denies any nausea or vomiting. He has a history of pancreatitis. Review of Systems A complete 10-point Review of Systems was discussed with the patient, with pertinent positives and negatives listed in the History of Present Illness. All remaining Review of Systems questions can be considered negative unless otherwise specified. Past Medical/Surgical History Medical Problems: (1) Acute pancreatitis (2) Acute Renal Failure, Unspecified (3) Esophageal Reflux (4) Hypertension Nos (5) Unilat Inguinal Hernia Family History Cancer Heart disease Hypertension Stroke Social History Smoking Status: Never Smoker Marital Status: Housing Status: lives with family Occupation Status: retired Current/Historical Medications Scheduled Doxazosin Mesylate (Cardura), 4 MG PO HS Metoprolol Tartrate (Lopressor) (Lopressor), 12.5 MG PO DAILY Multivitamins/Minerals (Mvi With Minerals), 1 TAB PO DAILY Sildenafil Citrate (Viagra), 100 MG PO PRN Sulfa/Trimethoprim (Bactrim Ds 800MG/160MG), 1 TAB PO DAILY Scheduled PRN Hydrocortisone 2.5% (Rectal) (Anusol-Hc 2.5%), 1 APPLN TOP BID PRN for Hemorrhoids Physical Exam Vital Signs Date Time Temp Pulse Resp B/P (MAP) Pulse Ox O2 Delivery O2 Flow Rate FiO2 06/17/17 14:48 54 14 99 06/17/17 14:43 53 99 06/17/17 14:38 57 97 06/17/17 14:33 54 99 06/17/17 14:31 137/80 06/17/17 14:31 55 18 137/80 99 Room Air 06/17/17 14:28 46 97 06/17/17 14:23 48 98 06/17/17 14:18 53 97 06/17/17 14:13 51 98 06/17/17 14:08 50 97 06/17/17 14:03 51 56/ 98 06/17/17 13:53 49 9 97 06/17/17 13:48 51 13 96 06/17/17 13:45 53 18 128/68 99 Room Air 06/17/17 13:43 54 24 98 06/17/17 13:38 51 98 06/17/17 13:33 57 96 06/17/17 13:28 50 97 06/17/17 13:23 50 97 06/17/17 13:18 50 12 97 06/17/17 13:13 49 16 98 06/17/17 13:08 51 15 97 06/17/17 13:03 50 14 96 06/17/17 13:03 49 06/17/17 13:01 128/68 06/17/17 12:58 50 10 98 06/17/17 12:55 112/62 06/17/17 12:53 55 16 98 06/17/17 12:48 50 10 97 06/17/17 12:48 50 16 112/62 95 Room Air 06/17/17 12:43 50 10 97 06/17/17 12:38 52 10 98 06/17/17 12:33 52 10 99 06/17/17 12:28 51 14 98 06/17/17 12:23 54 98 06/17/17 12:18 54 96 06/17/17 12:13 52 12 93 06/17/17 12:11 112/62 06/17/17 11:41 50 16 115/61 95 Room Air 06/17/17 11:41 115/61 06/17/17 11:28 49 95 06/17/17 11:23 51 96 06/17/17 11:18 50 95 06/17/17 11:13 51 9 94 06/17/17 11:08 51 9 97 06/17/17 11:03 51 98 06/17/17 10:58 52 13 94 06/17/17 10:53 51 13 94 06/17/17 10:48 51 13 94 06/17/17 10:48 51 18 139/78 95 Room Air 06/17/17 10:47 139/78 06/17/17 10:33 57 15 06/17/17 10:28 56 14 06/17/17 10:23 50 11 06/17/17 10:18 52 17 06/17/17 10:13 64 14 06/17/17 10:12 96 Room Air 06/17/17 10:08 64 22 06/17/17 10:03 51 14 06/17/17 09:58 52 06/17/17 09:53 52 20 06/17/17 09:48 51 16 06/17/17 09:46 52 06/17/17 08:37 36.5 56 18 142/89 97 Room Air Physical Exam VITAL SIGNS - Vital signs and nursing notes were reviewed. Stable. GENERAL -67-year-old male appearing his stated age who is in no acute distress but does appear to be in pain. Communicates well with provider and answers questions appropriately. SKIN - Without rashes. HEAD - NC/AT. LUNGS - Chest wall symmetric without accessory muscle use, intercostals retractions, or central cyanosis. Normal vesicular breath sounds CTA B/L. No wheezes, rales, or rhonchi appreciated. CARDIAC - RRR with S1/S2. No murmur, rubs, or gallops appreciated. ABDOMEN - Abdominal contour normal without pulsations or visible masses. BS normoactive all four quadrants. Exquisite tenderness to palpation overlying the epigastric region. Medical Decision & Procedures ER Provider Diagnostic Interpretation: [~ rep ct add3]] ABD/PELVIS IV AND ORAL CONT CLINICAL HISTORY: 67 years-old Male presenting with Epigastric abdominal pain radiating inferiorly, history of pancreatitis. TECHNIQUE: Multidetector CT of the abdomen and pelvis was performed after the administration of oral and intravenous contrast. IV contrast: 93 mL of Optiray 320. A dose lowering technique was used consistent with the principles of ALARA (as low as reasonably achievable). COMPARISON: 05/31/2017. CT DOSE (mGy.cm): The estimated cumulative dose is 482.79 mGy.cm. FINDINGS: Loom Doffer topogram: Cholecystectomy clips. Lung bases: 3 mm solid pulmonary nodule in the left lower lobe again noted. Aortic valve calcification. Normal heart size. No pericardial or pleural effusion. Liver: Normal morphology. No liver lesion. Patent hepatic vasculature. Biliary: Interval development of diffuse mild intrahepatic biliary ductal dilatation. The common duct is also slightly dilated to the level of the pancreatic head. Gallbladder surgically absent. Pancreas: Interval development of peripancreatic fluid and inflammatory change with heterogeneity and expansion of the pancreatic parenchyma. A focal hypodense region in the anterior pancreatic head (series 2 image 33) was likely present on prior exam and is not convincing for an pancreatic parenchymal collection. Few foci of calcification within the uncinate the pancreatic head likely indicating a history of chronic pancreatitis. No significant pancreatic ductal dilatation. Spleen: Normal. Splenule noted. Splenic artery and vein patent. Adrenal glands: Normal. Kidneys and ureters: Well-defined hypodensity in the right kidney compatible with simple cyst. No hydronephrosis. Normal ureters. Bladder: Mild circumferential bladder wall thickening. No perivesicular inflammatory change. Pelvic organs: Prostate enlargement likely secondary to benign prostatic hyperplasia. Postsurgical changes of vasectomy suspected. Bowel: Diverticulosis with wall thickening of the sigmoid colon likely indicating chronic diverticular disease. Mild wall thickening of the hepatic flexure is most likely secondary. Wall thickening of the descending portion of the duodenum also likely secondary. Appendix normal. No bowel obstruction. Duodenal diverticulum noted posterior to the uncinate process of the pancreas. Peritoneal cavity: Small amount of retroperitoneal fluid in the periduodenal region emanating from the pancreas. No free intraperitoneal fluid or gas. Lymph nodes: No enlarged lymph nodes in the abdomen or pelvis. Vasculature: Atherosclerosis of the normal caliber abdominal aorta. IVC patent. Abdominal wall: Postsurgical changes from prior right hernia repair. Postsurgical changes from ventral abdominal wall hernia repair in the upper gastric and. Musculoskeletal: Degenerative changes of the spine. IMPRESSION: 1. Interval development of interstitial edematous pancreatitis. No focal acute peripancreatic fluid collection. No convincing evidence of necrosis on the current exam. Significant surrounding inflammatory change with wall thickening of the duodenum. 2. Interval development of biliary ductal dilatation could be secondary to inflammatory change in the pancreas. An obstructing common duct calculus cannot be excluded as etiology of both bladder ductal dilatation and pancreatitis. If there is clinical concern, MRCP could be obtained. 3. 3 mm solid pulmonary nodule in the left lower lobe as on prior exam. Follow-up per [employer] Society 2017 recommendations as on prior exam. Please refer to below summary of Fleischner Society 2017 recommendations for follow-up of incidental CT nodules (H MacMahon, et al. Guidelines for management of incidental pulmonary nodules detected on CT images: From the Fleischner Society 2017. Radiology 2017; 284: 228-243.) SOLID NODULES Single nodule; size < 6 mm * Low risk patients: No routine follow-up * High risk patients: Optional CT at 12 months Single nodule; size 6-8 mm * Low risk patients: CT at 6-12 months, then consider CT at 18-24 months * High risk patients: CT at 6-12 months, then at 18-24 months Single nodule; size > 8 mm * Either low or high risk patients: Considered CT at 3 months, PET/CT, or tissue sampling Multiple nodules; size < 6 mm * Low risk patients: No routine follow up * High risk patients: Optional CT at 12 months Multiple nodules; size 6-8 mm * Low risk patients: CT at 3-6 months, then consider CT at 18-24 months * High risk patients: CT at 3-6 months, then at 18-24 months Multiple nodules; size > 8 mm * Low risk patients: CT at 3-6 months, then consider at 18-24 months * High risk patients: CT at 3-6 months, then at 18-24 months Note: These guidelines apply to incidental nodules. These guidelines do not apply to patients younger than 35 years, immunocompromised patients, or patients with cancer. * Low risk patients: Minimal or absent history of smoking and/or other known risk factors * High risk patients: History of smoking, exposure to other carcinogens, emphysema, fibrosis, upper lobe location, family history of lung cancer, etc. * If a nodule up to 8 mm is partly solid or is ground glass, further follow-up is required after 24 months to exclude possible slow growing adenocarcinoma. SUBSOLID NODULES Single ground-glass nodule * Nodule size < 6 mm: No routine follow-up * Nodule size > or = 6 mm: CT at 6-12 months to confirm persistence, then CT every 2 years until 5 years Single part-solid nodule * Nodule size < 6 mm: No routine follow-up * Nodules size > or = 6 mm: CT at 3-6 months to confirm persistence. If unchanged and solid component remains < 6 mm, annual CT should be performed for 5 years Multiple nodules * Nodule size < 6 mm: CT at 3-6 months. If stable, consider CT at 2 and 4 years. * Nodules size > or = 6 mm: CT at 3-6 months. Subsequent management based on the most suspicious nodule(s) Electronically signed by: Raffi George M.D. 06/17/2017 12:20 PM Dictated Date/Time: 06/17/2017 12:10 PM Laboratory Results 06/17/17 09:25 Red Blood Count 4.88, Mean Corpuscular Volume 90.0, Mean Corpuscular Hemoglobin 31.8, Mean Corpuscular Hemoglobin Concent 35.3, Mean Platelet Volume 9.7, Neutrophils (%) (Auto) 84.7, Lymphocytes (%) (Auto) 10.0, Monocytes (%) (Auto) 4.4, Eosinophils (%) (Auto) 0.6, Basophils (%) (Auto) 0.2, Neutrophils # (Auto) 7.48, Lymphocytes # (Auto) 0.88, Monocytes # (Auto) 0.39, Eosinophils # (Auto) 0.05, Basophils # (Auto) 0.02 06/17/17 09:25 Test 06/17/17 09:25 White Blood Count 8.83 K/uL (4.8-10.8) Red Blood Count 4.88 M/uL (4.7-6.1) Hemoglobin 15.5 g/dL (14.0-18.0) Hematocrit 43.9 % (42-52) Mean Corpuscular Volume 90.0 fL (80-100) Mean Corpuscular Hemoglobin 31.8 pg (25-34) Mean Corpuscular Hemoglobin Concent 35.3 g/dl (32-36) Platelet Count 169 K/uL (130-400) Mean Platelet Volume 9.7 fL (7.4-10.4) Neutrophils (%) (Auto) 84.7 % Lymphocytes (%) (Auto) 10.0 % Monocytes (%) (Auto) 4.4 % Eosinophils (%) (Auto) 0.6 % Basophils (%) (Auto) 0.2 % Neutrophils # (Auto) 7.48 K/uL (1.4-6.5) Lymphocytes # (Auto) 0.88 K/uL (1.2-3.4) Monocytes # (Auto) 0.39 K/uL (0.11-0.59) Eosinophils # (Auto) 0.05 K/uL (0-0.5) Basophils # (Auto) 0.02 K/uL (0-0.2) RDW Standard Deviation 42.2 fL (36.4-46.3) RDW Coefficient of Variation 12.8 % (11.5-14.5) Immature Granulocyte % (Auto) 0.1 % Immature Granulocyte # (Auto) 0.01 K/uL (0.00-0.02) Prothrombin Time 11.0 SECONDS (9.0-12.0) Prothromb Time International Ratio 1.0 (0.9-1.1) Activated Partial Thromboplast Time 27.1 SECONDS (21.0-31.0) Partial Thromboplastin Ratio 1.0 Anion Gap 5.0 mmol/L (3-11) Est Creatinine Clear Calc Drug Dose 65.6 ml/min Estimated GFR () 72.1 Estimated GFR (Non- 62.2 BUN/Creatinine Ratio 20.1 (10-20) Calcium Level 9.1 mg/dl (8.5-10.1) Magnesium Level 2.2 mg/dl (1.8-2.4) Total Bilirubin 0.5 mg/dl (0.2-1) Aspartate Amino Transf (AST/SGOT) 24 U/L (15-37) Alanine Aminotransferase (ALT/SGPT) 29 U/L (12-78) Alkaline Phosphatase 72 U/L (45-117) Total Creatine Kinase 164 U/L (39-308) Creatine Kinase MB 1.8 ng/ml (0.5-3.6) Creatine Kinase MB Ratio 1.1 (0-3.0) Troponin I < 0.015 ng/ml (0-0.045) Total Protein 7.3 gm/dl (6.4-8.2) Albumin 3.9 gm/dl (3.4-5.0) Globulin 3.4 gm/dl (2.5-4.0) Albumin/Globulin Ratio 1.2 (0.9-2) Lipase 85020 U/L (73-393) Medications Administered Medications (Trade) Dose Ordered Sig/Quintin Route Start Time Stop Time Status Last Admin Dose Admin Morphine Sulfate (MoRPHine SULFATE INJ) 4 mg NOW STAT IV 06/17/17 09:06 06/17/17 09:08 DC 06/17/17 09:35 4 MG Ondansetron HCl (Zofran Inj) 4 mg NOW STAT IV 06/17/17 09:06 06/17/17 09:08 DC 06/17/17 09:35 4 MG Morphine Sulfate (MoRPHine SULFATE INJ) 4 mg NOW STAT IV 06/17/17 10:06 06/17/17 10:07 DC 06/17/17 10:15 4 MG Hydromorphone HCl (Dilaudid Inj) 1 mg NOW STAT IV 06/17/17 10:37 06/17/17 10:39 DC 06/17/17 10:47 1 MG Sodium Chloride 1,000 ml @ 999 mls/hr Q1H1M STAT IV 06/17/17 13:18 06/17/17 14:18 DC 06/17/17 13:44 999 MLS/HR Medical Decision Patient was seen and evaluated as above. He presents to us today for epigastric abdominal pain. Previous visits were reviewed. He has a history of pancreatitis. Bedside EKG reveals sinus bradycardia, otherwise unremarkable EKG. Troponin was negative. He examines as though he may have pancreatitis. His lipase was 16,000. her leukocytosis or anemia. Coags normal. Patient metabolic workup reveals BUN high 24, and creatinine okay at 1.2. He was given a copy of the CT scan with incidental so that he may follow-up with his family doctor. He was given morphine for his pain, then changed to Dilaudid. I do believe that inpatient management for his pain is warranted. He was made nothing by mouth, and was given a liter of fluids. Case was discussed with the hospitalist. Please refer to further documentation regarding his stay. In evaluation treatment this patient following differential diagnoses were entertained: Acute pancreatitis, ST segment elevation myocardial infarction, PE , gastroenteritis, mesenteric ischemia, among others. Impression Primary Impression: Acute pancreatitis Departure Information Dispostion Admitted as an inpatient Condition FAIR Referrals No Doctor, Assigned (PCP) Patient Instructions My [facility]
[2017-06-17] MEDS: DOXAZosin MESYLATE TAB 4 MG TAB PO SCH (21:00)
[2017-06-17 21:52] LABS: URINE APPEARANCE CLEAR (CLEAR); URINE BILIRUBIN NEG (NEG); URINE COLOR YELLOW; URINE NITRITE NEG (NEG); URINE PH 5.5 (4.5-7.5); URINE SPECIFIC GRAVITY 1.035 (1.000-1.030); UROBILINOGEN NEG (NEG); ZZUR CULT IF INDIC CLEAN CATCH NO
[2017-06-17 22:10] LABS: MANUAL MICROSCOPIC REQUIRED? NO; REVIEW REQ? NO
[2017-06-17 23:30] VITALS: BP 133/81; PULSE 57; TEMP 36.7; O2SAT 96
[2017-06-18 06:39] LABS: HEMATOCRIT 37.3 % (42-52); MEAN CELL VOLUME 90.5 fL (80-100); MEAN CORPUSCULAR HEMOGLOBIN 31.6 pg (25-34); MEAN CORPUSCULAR HGB CONC 34.9 g/dl (32-36); MEAN PLATELET VOLUME 9.7 fL (7.4-10.4); PLATELET COUNT 154 K/uL (130-400); RED BLOOD COUNT 4.12 M/uL (4.7-6.1); WHITE BLOOD COUNT 6.71 K/uL (4.8-10.8)
[2017-06-18 07:10] LABS: BUN/CREATININE RATIO 17.6 (10-20); CALCIUM 8.1 mg/dl (8.5-10.1); CREATININE 0.99 mg/dl (0.60-1.40); POTASSIUM 4.1 mmol/L (3.5-5.1)
[2017-06-18 07:35] VITALS: BP 129/75; PULSE 57; TEMP 36.8; O2SAT 97
[2017-06-18] MEDS: SODIUM CHLORIDE 0.9% 1000ML 1,000 ML IV SCH ×2 (07:47→15:37)
[2017-06-18] MEDS: PANTOprazole SOD 40 MG TAB PO SCH (08:49)
[2017-06-18] MEDS: SULFAMETHOXAZOLE/TRIMETHOPRIM DS 800/160MG TAB PO SCH (08:49)
[2017-06-18 08:52] VITALS: BP 128/79; PULSE 56
[2017-06-18] MEDS: METOPROLOL TARTRATE 25 MG TAB PO SCH (08:52)
--- NOTE | 2017-06-18 12:38 | Gastrointestinal Consultation ---
Gastrointestinal Consultation Date of Consultation: Jun 18, 2017 Attending Physician: Dr. Chadwick Consulting Physician: Dr. Sarkar Reason for Consultation: Pancreatitis History of Present Illness Patient is a 67 year old male patient of Dr. Gresham (hasn't established with a replacement since Dr. Gresham's half-way but continues to be seen at that office ). He has a hx of acute pancreatitis (2005, 2009). He presented to the ED yesterday for abdominal pain, suspecting pancreatitis, and GI is consulted for pancreatitis. Yesterday morning at 4AM, he was awakened with moderately severe epigastric pain that quickly escalated. He did not have nausea, vomiting, diarrhea, jaundice, icterus, or acholic stools with the pain. He has not had fever, jaundice. He recognized this as similar to prior pancreatitis episodes and presented to the ED. He doesn't recall eating any particularly high fat foods recently and he does not drink alcohol. He is S/P distal cholecystectomy. He also carries a hx of folliculitis for which his is on residential Bactrim DS. On arrival, lipase was elevated at 16,935. Today, lipase is 3250. LFTs were normal on arrival and Bili and Alk phos remain normal, but today, AST is 97 and ALT is 150 Alk Phos and bili have been normal. Again, on arrival, CT with findings of acute pancreatitis. The patient is seen and examined while he is sitting up in a chair. He tells me that after the second dose of pain medicine, that he got resolution of his pain and that he currently feels "very well." Past Medical/Surgical History Past Medical History: 1. Acute pancreatitis. 2. Folliculitis 3. Palpitations Past Surgical History: 1. EUS 2. Colonoscopy 10/02/14 Dr. Wren: one 2 mm polyps and diverticulosis. 3. EUS 2005 Dr. Buckley in [place]: normal pancreas. There was CBD dilation to 7mm. Family History Cancer Heart disease Hypertension Stroke Social History Smoking Status: Never Smoker Marital Status: Housing Status: lives with family Occupation Status: retired Allergies Coded Allergies: Simvastatin (Verified Allergy, Unknown, UNKNOWN RXN TO [facility], 06/17/17) Current Medications Home Meds and Scripts Medications Dose Route/Sig Max Daily Dose Days Date Category Mvi With Minerals (Multivitamins/Minerals) Tab 1 Tab PO DAILY 05/31/17 Reported Viagra (Sildenafil Citrate) 100 Mg Tab 100 Mg PO PRN 05/31/17 Reported Anusol-Hc 2.5% (Hydrocortisone 2.5% (Rectal)) 2.5 % Cre 1 Appln TOP BID PRN 7 05/31/17 Reported Bactrim Ds 800MG/160MG (Trimethoprim/Sulfamethoxazole) Tab 1 Tab PO DAILY 05/31/17 Reported Cardura (Doxazosin Mesylate) 4 Mg Tab 4 Mg PO HS 05/31/17 Reported Lopressor (Metoprolol Tartrate) 25 Mg Tab 12.5 Mg PO DAILY 06/28/10 Reported Review of Systems Constitutional: No fever, No chills, No sweats, No weight loss, No weakness Eyes: No eye pain, No redness ENT: No sore throat, No trouble swallowing, No pain on swallowing Respiratory: No cough, No wheezing, No shortness of breath, No dyspnea on exertion Cardiac: No chest pain, No edema, No palpitations Abdomen: + see HPI, + pain Neuro: No memory loss, No weakness, No numbness/tingling, No vertigo, No balance problems Psych: No depression symptoms, No anxiety, No insomnia Heme: No abnormal bleeding/bruising, No night sweats Endo: No excessive thirst, No excessive urination Skin: No rash, No itch, No new/changing skin lesions, No jaundice Physical Exam Date Time Temp Pulse Resp B/P (MAP) Pulse Ox O2 Delivery O2 Flow Rate FiO2 06/18/17 08:52 56 128/79 (95) 06/18/17 07:35 36.8 57 16 129/75 (93) 97 Room Air 06/18/17 07:25 Room Air 06/17/17 23:30 Room Air 06/17/17 23:30 36.7 57 16 133/81 (98) 96 Room Air 06/17/17 20:20 Room Air 06/17/17 16:15 Room Air 06/17/17 16:15 36.5 48 16 157/84 (108) 98 Room Air 06/17/17 16:04 36.5 50 14 136/79 98 06/17/17 16:01 136/79 06/17/17 15:58 50 98 06/17/17 15:53 50 100 06/17/17 15:48 54 98 06/17/17 15:43 51 99 06/17/17 15:38 51 98 06/17/17 15:33 49 98 06/17/17 15:28 51 99 06/17/17 15:23 54 97 06/17/17 15:18 50 99 06/17/17 15:13 50 98 06/17/17 15:08 51 98 06/17/17 15:03 47 98 06/17/17 15:01 136/82 06/17/17 14:58 53 98 06/17/17 14:53 53 98 06/17/17 14:48 54 14 99 06/17/17 14:43 53 99 06/17/17 14:38 57 97 06/17/17 14:33 54 99 06/17/17 14:31 137/80 06/17/17 14:31 55 18 137/80 99 Room Air 06/17/17 14:28 46 97 06/17/17 14:23 48 98 06/17/17 14:18 53 97 06/17/17 14:13 51 98 06/17/17 14:08 50 97 06/17/17 14:03 51 56/ 98 06/17/17 13:53 49 9 97 06/17/17 13:48 51 13 96 06/17/17 13:45 53 18 128/68 99 Room Air 06/17/17 13:43 54 24 98 06/17/17 13:38 51 98 06/17/17 13:33 57 96 06/17/17 13:28 50 97 06/17/17 13:23 50 97 06/17/17 13:18 50 12 97 06/17/17 13:13 49 16 98 06/17/17 13:08 51 15 97 06/17/17 13:03 50 14 96 06/17/17 13:03 49 06/17/17 13:01 128/68 06/17/17 12:58 50 10 98 06/17/17 12:55 112/62 06/17/17 12:53 55 16 98 06/17/17 12:48 50 10 97 06/17/17 12:48 50 16 112/62 95 Room Air 06/17/17 12:43 50 10 97 06/17/17 12:38 52 10 98 06/17/17 12:33 52 10 99 06/17/17 12:28 51 14 98 06/17/17 12:23 54 98 General Appearance: no apparent distress Eyes: normal inspection, EOMI Neck: supple, no adenopathy, thyroid normal Respiratory/Chest: chest non-tender, lungs clear, normal breath sounds, no accessory muscle use Cardiovascular: regular rate, rhythm, no JVD, + systolic murmur (2/6 systolic murmur, loadest at the LSB) Abdomen: normal bowel sounds, soft, no organomegaly, + tenderness (minimal epigastric tenderness) Extremities: normal inspection, no pedal edema, normal capillary refill Neurologic/Psych: alert, normal mood/affect, oriented x 3 Skin: normal color, no jaundice, warm/dry, no rash Laboratory Results Last 24 Hours Test 06/17/17 21:30 06/18/17 06:12 Urine Color YELLOW Urine Appearance CLEAR Urine pH 5.5 Urine Specific [place] 1.035 Urine Protein NEG Urine Glucose (UA) NEG Urine Ketones NEG Urine Occult Blood NEG Urine Nitrite NEG Urine Bilirubin NEG Urine Urobilinogen NEG Urine Leukocyte Esterase NEG White Blood Count 6.71 K/uL Red Blood Count 4.12 M/uL Hemoglobin 13.0 g/dL Hematocrit 37.3 % Mean Corpuscular Volume 90.5 fL Mean Corpuscular Hemoglobin 31.6 pg Mean Corpuscular Hemoglobin Concent 34.9 g/dl RDW Standard Deviation 43.5 fL RDW Coefficient of Variation 13.2 % Platelet Count 154 K/uL Mean Platelet Volume 9.7 fL Sodium Level 142 mmol/L Potassium Level 4.1 mmol/L Chloride Level 110 mmol/L Carbon Dioxide Level 27 mmol/L Anion Gap 5.0 mmol/L Blood Urea Nitrogen 17 mg/dl Creatinine 0.99 mg/dl Est Creatinine Clear Calc Drug Dose 79.5 ml/min Estimated GFR () 91.0 Estimated GFR (Non- 78.5 BUN/Creatinine Ratio 17.6 Random Glucose 86 mg/dl Calcium Level 8.1 mg/dl Total Bilirubin 0.9 mg/dl Aspartate Amino Transf (AST/SGOT) 97 U/L Alanine Aminotransferase (ALT/SGPT) 150 U/L Alkaline Phosphatase 74 U/L Total Protein 5.8 gm/dl Albumin 2.9 gm/dl Globulin 2.9 gm/dl Albumin/Globulin Ratio 1.0 Lipase 3250 U/L Hepatitis C Antibody Screen NEG Impression Patient is a 67 year old male with recurrent acute pancreatitis, S/P distant cholecystectomy and no hx of increased alcohol intake. Bactrim has been found to cause pancreatitis in some patient - would question if this may have triggered his pancreatitis. Plan 1. Continue IV fluids. 2. Clear liquids po. 3. Will check LFTs, lipase tomorrow. 4. Consider discontinuation of Bactrim. I have personally seen and examined the patient with PALOMO Ramirez. Her note reflects my exam and findings. I agree with her impression and plan. It is possible that Bactrim may be cause of acute pancreatitis. I would hold this med and consider an alternative. Slowly advance diet as symptoms permit. Cholo Sarkar M.D.
[2017-06-18 15:15] VITALS: BP 152/82; PULSE 51; TEMP 36.7; O2SAT 96
--- NOTE | 2017-06-18 17:40 | Progress Note ---
Medicine Progress Note Date & Time of Visit: Jun 18, 2017 at 17:27. Subjective Pt was seen and examined Sitting in chair comfortable with no distress Pt said that he feels fine he said that he is abdominal pain improved significantly denies any chest pain, palpitation, dizziness and sob Objective Last 8 Hrs Date Time Temp Pulse Resp B/P (MAP) Pulse Ox O2 Delivery O2 Flow Rate FiO2 06/18/17 15:15 36.7 51 18 152/82 (105) 96 Room Air Physical Exam: General- No acute distress Head- atraumatic Eyes- PERRL, EOMI ENT- oropharynx clear Neck- supple, no JVD Lungs- clear to auscultation Heart- regular rhythm Abdomen- normal bowel sounds, soft Extremities- no calf tenderness Neuro- alert, oriented x 3; PERRL, EOMI Skin- warm & dry Laboratory Results: Last 24 Hours Test 06/17/17 21:30 06/18/17 06:12 Urine Color YELLOW Urine Appearance CLEAR Urine pH 5.5 Urine Specific [place] 1.035 Urine Protein NEG Urine Glucose (UA) NEG Urine Ketones NEG Urine Occult Blood NEG Urine Nitrite NEG Urine Bilirubin NEG Urine Urobilinogen NEG Urine Leukocyte Esterase NEG White Blood Count 6.71 K/uL Red Blood Count 4.12 M/uL Hemoglobin 13.0 g/dL Hematocrit 37.3 % Mean Corpuscular Volume 90.5 fL Mean Corpuscular Hemoglobin 31.6 pg Mean Corpuscular Hemoglobin Concent 34.9 g/dl RDW Standard Deviation 43.5 fL RDW Coefficient of Variation 13.2 % Platelet Count 154 K/uL Mean Platelet Volume 9.7 fL Sodium Level 142 mmol/L Potassium Level 4.1 mmol/L Chloride Level 110 mmol/L Carbon Dioxide Level 27 mmol/L Anion Gap 5.0 mmol/L Blood Urea Nitrogen 17 mg/dl Creatinine 0.99 mg/dl Est Creatinine Clear Calc Drug Dose 79.5 ml/min Estimated GFR () 91.0 Estimated GFR (Non- 78.5 BUN/Creatinine Ratio 17.6 Random Glucose 86 mg/dl Calcium Level 8.1 mg/dl Total Bilirubin 0.9 mg/dl Aspartate Amino Transf (AST/SGOT) 97 U/L Alanine Aminotransferase (ALT/SGPT) 150 U/L Alkaline Phosphatase 74 U/L Total Protein 5.8 gm/dl Albumin 2.9 gm/dl Globulin 2.9 gm/dl Albumin/Globulin Ratio 1.0 Lipase 3250 U/L Hepatitis C Antibody Screen NEG Assessment & Plan Acute pancreatitis Present with epigastric abdominal pain with elevated Lipase Lipase on admission 16K CT abdomen showed interval development of interstitial edematous pancreatitis. No focal acute peripancreatic fluid collection. Interval development of biliary ductal dilatation could be secondary to inflammatory change in the pancreas Continue IVF Dilaudid for pain control and zofran Tolerated clear liquid diet will advanced diet as tolerated Lipase trending down to 3200 denies any pain Check lipase in am Gastro consulted recommended to d/c the Bactrim because it can cause pancreatitis Elevated Liver Enzymes Liver enzymes elevated today continue monitor LFT Left Lung nodule CT showed 3 mm solid pulmonary nodule in the left lower lobe as on prior exam Monitor as an outpatient HTN continue med stable Hx of folliculitis Has been taking Bactrim daily to prevent flare up will hold bactrim for now DVT px on Lovenox Code status Full Code Consultants: Gastro Current Inpatient Medications: Current Inpatient Medications Medications (Trade) Dose Ordered Sig/Quintin Route Start Time Stop Time Status Last Admin Dose Admin Ioversol (Optiray 320) 100 ml UD PRN IV 06/17/17 09:30 06/21/17 09:29 Enoxaparin Sodium (Lovenox Inj) 40 mg Q24H SQ 06/17/17 18:00 07/17/17 17:59 06/17/17 17:46 40 MG Ondansetron HCl (Zofran Inj) 4 mg Q6H PRN IV 06/17/17 14:45 07/17/17 14:44 Doxazosin Mesylate (Cardura Tab) 4 mg HS PO 06/17/17 21:00 07/17/17 20:59 Metoprolol Tartrate (Lopressor Tab) 12.5 mg DAILY PO 06/18/17 09:00 07/18/17 08:59 Trimethoprim/ Sulfamethoxazole (Septra Ds 800/ 160MG Tab) 1 tab DAILY PO 06/17/17 17:00 06/27/17 16:59 06/18/17 08:49 1 TAB Hydromorphone HCl (Dilaudid Inj) 1 mg Q4HWA PRN IV 06/17/17 15:00 07/01/17 14:59 Sodium Chloride 1,000 ml @ 125 mls/hr Q8H IV 06/17/17 17:00 07/17/17 16:59 06/18/17 15:37 125 MLS/HR Pantoprazole Sodium (Protonix Tab) 40 mg QAM PO 06/18/17 09:00 07/18/17 08:59 06/18/17 08:49 40 MG
[2017-06-18] MEDS: ENOXAPARIN 40 MG/0.4 ML SYR SQ SCH (18:00)
[2017-06-18] MEDS: DOXAZosin MESYLATE TAB 4 MG TAB PO SCH (21:07)
[2017-06-18 22:55] VITALS: BP 155/81; PULSE 62; TEMP 36.9; O2SAT 97
[2017-06-19] MEDS: SODIUM CHLORIDE 0.9% 1000ML 1,000 ML IV SCH (04:54)
[2017-06-19 07:26] VITALS: BP 158/88; PULSE 54; TEMP 36.7; O2SAT 94
[2017-06-19 08:19] LABS: BUN/CREATININE RATIO 12.7 (10-20); CALCIUM 8.8 mg/dl (8.5-10.1); CREATININE 1.1 mg/dl (0.60-1.40)
[2017-06-19 08:22] LABS: ALB/GLOB RATIO 1.1 (0.9-2)
[2017-06-19] MEDS: METOPROLOL TARTRATE 25 MG TAB PO SCH (09:43)
[2017-06-19 09:45] VITALS: PULSE 72
--- NOTE | 2017-06-19 10:01 | Gastroenterology Progress Note ---
Progress Note Date of Service: Jun 19, 2017 Subjective Pt evaluation today including: conversation w/ patient, physical exam, chart review, lab review, review of studies, review of inpatient medication list Mr Garcia is a 67-year-old male who is admitted with acute pancreatitis on 04/2017. His pain is resolved other than minimal discomfort in the epigastric area. He is able to tolerate a low-fat regular consistency diet last night for supper and this morning for breakfast. Lipase on arrival was more than 16,000, today it is 465. LFTs have remained normal. The patient would like to be discharged today. Review of Systems Constitutional: No fever Respiratory: No cough Cardiac: No chest pain Abdomen: + see HPI, + pain, No nausea, No vomiting, No diarrhea, No constipation, No GI bleeding Musculoskeletal: No joint pain Male : No dysuria Neuro: No memory loss Psych: No depression symptoms Heme: No abnormal bleeding/bruising Endo: No fatigue Skin: No rash Medications Current Inpatient Medications Medications (Trade) Dose Ordered Sig/Quintin Route Start Time Stop Time Status Last Admin Dose Admin Ioversol (Optiray 320) 100 ml UD PRN IV 06/17/17 09:30 06/21/17 09:29 Enoxaparin Sodium (Lovenox Inj) 40 mg Q24H SQ 06/17/17 18:00 07/17/17 17:59 06/17/17 17:46 40 MG Ondansetron HCl (Zofran Inj) 4 mg Q6H PRN IV 06/17/17 14:45 07/17/17 14:44 Doxazosin Mesylate (Cardura Tab) 4 mg HS PO 06/17/17 21:00 07/17/17 20:59 06/18/17 21:07 4 MG Metoprolol Tartrate (Lopressor Tab) 12.5 mg DAILY PO 06/18/17 09:00 07/18/17 08:59 06/19/17 09:43 12.5 MG Trimethoprim/ Sulfamethoxazole (Septra Ds 800/ 160MG Tab) 1 tab DAILY PO 06/17/17 17:00 06/27/17 16:59 Future Hold 06/18/17 08:49 1 TAB Hydromorphone HCl (Dilaudid Inj) 1 mg Q4HWA PRN IV 06/17/17 15:00 07/01/17 14:59 Sodium Chloride 1,000 ml @ 80 mls/hr [id number] IV 06/17/17 17:00 07/17/17 16:59 06/19/17 04:54 80 MLS/HR Pantoprazole Sodium (Protonix Tab) 40 mg QAM PO 06/18/17 09:00 07/18/17 08:59 06/18/17 08:49 40 MG Objective Vital Signs Date Time Temp Pulse Resp B/P (MAP) Pulse Ox O2 Delivery O2 Flow Rate FiO2 06/19/17 07:45 Room Air 06/19/17 07:26 36.7 54 16 158/88 (111) 94 Room Air 06/18/17 23:15 Room Air 06/18/17 22:55 36.9 62 16 155/81 (105) 97 Room Air 06/18/17 15:40 Room Air 06/18/17 15:15 36.7 51 18 152/82 (105) 96 Room Air Physical Exam General Appearance: no apparent distress Neck: no adenopathy, no JVD Respiratory/Chest: lungs clear Cardiovascular: regular rate, rhythm, no JVD, no murmur Abdomen: non tender, soft Extremities: normal inspection, no pedal edema Neurologic/Psych: alert, normal mood/affect, oriented x 3 Skin: no jaundice Laboratory Results Last 24 Hours Test 06/19/17 07:26 Sodium Level 143 mmol/L Potassium Level 4.0 mmol/L Chloride Level 110 mmol/L Carbon Dioxide Level 28 mmol/L Anion Gap 6.0 mmol/L Blood Urea Nitrogen 14 mg/dl Creatinine 1.10 mg/dl Est Creatinine Clear Calc Drug Dose 71.5 ml/min Estimated GFR () 80.1 Estimated GFR (Non- 69.1 BUN/Creatinine Ratio 12.7 Random Glucose 93 mg/dl Calcium Level 8.8 mg/dl Total Bilirubin 1.0 mg/dl Aspartate Amino Transf (AST/SGOT) 42 U/L Alanine Aminotransferase (ALT/SGPT) 103 U/L Alkaline Phosphatase 79 U/L Total Protein 6.8 gm/dl Albumin 3.5 gm/dl Globulin 3.3 gm/dl Albumin/Globulin Ratio 1.1 Lipase 465 U/L Assessment and Plan Mr. Roca is a 67-year-old male with acute recurrent pancreatitis without clear etiology, possibly from Bactrim. He is status post distant cholecystectomy and does not drink alcohol. Plan: 1. Pt to discuss possible discontinuation of Bactrim with his account technician. 2. Discussed possible usefulness of EUS. Because most recent prior episode of pancreatitis was 7 years ago likelihood of abnormality on EUS is low. However patient would like to undergo this study he should make an appointment with Dr. Rowdy lipscomb in the office to discuss. Patient will consider. 3. Okay for discharge from a GI standpoint. Recommend low-fat diet for a few weeks. I performed a history and physical examination of the patient. I have discussed the patient's case, impression and plan with PALOMO Ramirez on 06/19/2017. Her note reflects my findings and plan. Avoid Bactrim. Cholo Sarkar MD
[2017-06-19] MEDS: PANTOprazole SOD 40 MG TAB PO SCH (10:18)
--- NOTE | 2017-06-19 14:15 | Progress Note ---
Medicine Progress Note Date & Time of Visit: Jun 19, 2017 at 14:06. Subjective Pt was seen and examined Sitting in chair with no distress Pt said that he feels fine He tolerated his diet well he said that his abdominal pain is much better, only has some very mild tenderness denies any chest pain, palpitation, dizziness and SOB Objective Last 8 Hrs Date Time Temp Pulse Resp B/P (MAP) Pulse Ox O2 Delivery O2 Flow Rate FiO2 06/19/17 09:45 72 06/19/17 07:45 Room Air 06/19/17 07:26 36.7 54 16 158/88 (111) 94 Room Air Physical Exam: General- No acute distress Head- atraumatic Eyes- PERRL, EOMI ENT- oropharynx clear Neck- supple, no JVD Lungs- clear to auscultation Heart- regular rhythm Abdomen- normal bowel sounds, soft Extremities- no calf tenderness Neuro- alert, oriented x 3; PERRL, EOMI Skin- warm & dry Laboratory Results: Last 24 Hours Test 06/19/17 07:26 Sodium Level 143 mmol/L Potassium Level 4.0 mmol/L Chloride Level 110 mmol/L Carbon Dioxide Level 28 mmol/L Anion Gap 6.0 mmol/L Blood Urea Nitrogen 14 mg/dl Creatinine 1.10 mg/dl Est Creatinine Clear Calc Drug Dose 71.5 ml/min Estimated GFR () 80.1 Estimated GFR (Non- 69.1 BUN/Creatinine Ratio 12.7 Random Glucose 93 mg/dl Calcium Level 8.8 mg/dl Total Bilirubin 1.0 mg/dl Aspartate Amino Transf (AST/SGOT) 42 U/L Alanine Aminotransferase (ALT/SGPT) 103 U/L Alkaline Phosphatase 79 U/L Total Protein 6.8 gm/dl Albumin 3.5 gm/dl Globulin 3.3 gm/dl Albumin/Globulin Ratio 1.1 Lipase 465 U/L Assessment & Plan Acute pancreatitis Present with epigastric abdominal pain with elevated Lipase Lipase on admission 16K CT abdomen showed interval development of interstitial edematous pancreatitis. No focal acute peripancreatic fluid collection. Interval development of biliary ductal dilatation could be secondary to inflammatory change in the pancreas Continue IVF Dilaudid for pain control and zofran Tolerated clear liquid diet will advanced diet as tolerated Lipase trending down to 3200 --> 465 Gastro consulted recommended to d/c the Bactrim because it can cause pancreatitis Pt will discussed with his dermatology for possible to d/c the Bactrim Elevated Liver Enzymes Liver enzymes trending down check LFT in 1 week Left Lung nodule CT showed 3 mm solid pulmonary nodule in the left lower lobe as on prior exam Monitor as an outpatient HTN continue med stable Hx of folliculitis Has been taking Bactrim daily to prevent flare up consider to discontinue Bactrim DVT px on Lovenox Code status Full Code Disposition Follow up with Dr. Philip on 06/22 @ 11:15 am Consultants: Gastro Current Inpatient Medications: Current Inpatient Medications Medications (Trade) Dose Ordered Sig/Quintin Route Start Time Stop Time Status Last Admin Dose Admin Ioversol (Optiray 320) 100 ml UD PRN IV 06/17/17 09:30 06/21/17 09:29 Enoxaparin Sodium (Lovenox Inj) 40 mg Q24H SQ 06/17/17 18:00 07/17/17 17:59 06/17/17 17:46 40 MG Ondansetron HCl (Zofran Inj) 4 mg Q6H PRN IV 06/17/17 14:45 07/17/17 14:44 Doxazosin Mesylate (Cardura Tab) 4 mg HS PO 06/17/17 21:00 07/17/17 20:59 06/18/17 21:07 4 MG Metoprolol Tartrate (Lopressor Tab) 12.5 mg DAILY PO 06/18/17 09:00 07/18/17 08:59 06/19/17 09:43 12.5 MG Trimethoprim/ Sulfamethoxazole (Septra Ds 800/ 160MG Tab) 1 tab DAILY PO 06/17/17 17:00 06/27/17 16:59 Future Hold 06/18/17 08:49 1 TAB Hydromorphone HCl (Dilaudid Inj) 1 mg Q4HWA PRN IV 06/17/17 15:00 07/01/17 14:59 Sodium Chloride 1,000 ml @ 80 mls/hr [id number] IV 06/17/17 17:00 07/17/17 16:59 06/19/17 04:54 80 MLS/HR Pantoprazole Sodium (Protonix Tab) 40 mg QAM PO 06/18/17 09:00 07/18/17 08:59 06/19/17 10:18 40 MG
--- NOTE | 2017-06-19 14:27 | Discharge Instructions ---
Discharge Instructions Date of Service Jun 19, 2017. Admission Reason for Admission: Acute Pancreatitis Discharge Discharge Diagnosis / Problem: Acute pancreatitis, Elevated Liver Enzymes, Left Lung nodule Discharge Goals Goal(s): Decrease discomfort, Improve function, Improve disease control Activity Recommendations Activity Limitations: resume your previous activity (as tolerated) . Instructions / Follow-Up Instructions / Follow-Up Follow up with your primary care provider Dr. Philip on 06/22 @ 11:15 am Follow up with your gastroenterology Dr. Piña Discussed with your dermatology to consider to discontinue the Bactrim Check Liver enzymes in 1 week Follow up for the left lung nodule Continue low fat diet for the next few weeks Current Hospital Diet Patient's current hospital diet: Low Fat Diet Discharge Diet Recommended Diet: Low Fat Diet Pending Studies Studies pending at discharge: no Medical Emergencies . Who to Call and When: Medical Emergencies: If at any time you feel your situation is an emergency, please call 911 immediately. . Non-Emergent Contact Non-Emergency issues call your: Primary Care Provider Call Non-Emergent contact if: your pain is worsening, you have any medication questions . . "Provider Documentation" section prepared by Dulce Chadwick. . VTE Core Measure Inpt VTE Proph given/why not?: Enoxaparin (Lovenox)SQ
[2017-06-19 14:31] VITALS: BP 158/88; PULSE 72; TEMP 36.7; O2SAT 94
--- NOTE | 2017-06-21 07:32 | Discharge Summary ---
Discharge Summary Date of Service Jun 21, 2017. Discharge Summary Admission Date: Jun 17, 2017 at 14:49 Discharge Date: Jun 19, 2017 Discharge Disposition: Home Principal Diagnosis: Acute Pancreatitis Secondary Diagnoses/Problems: Elevated Liver Enzymes Left Lung nodule HTN Hx Folliculitis Procedures: ABD/PELVIS IV AND ORAL CONT CLINICAL HISTORY: 67 years-old Male presenting with Epigastric abdominal pain radiating inferiorly, history of pancreatitis. TECHNIQUE: Multidetector CT of the abdomen and pelvis was performed after the administration of oral and intravenous contrast. IV contrast: 93 mL of Optiray 320. A dose lowering technique was used consistent with the principles of ALARA (as low as reasonably achievable). COMPARISON: 05/31/2017. CT DOSE (mGy.cm): The estimated cumulative dose is 482.79 mGy.cm. FINDINGS: [employer] Paving Machine Operator topogram: Cholecystectomy clips. Lung bases: 3 mm solid pulmonary nodule in the left lower lobe again noted. Aortic valve calcification. Normal heart size. No pericardial or pleural effusion. Liver: Normal morphology. No liver lesion. Patent hepatic vasculature. Biliary: Interval development of diffuse mild intrahepatic biliary ductal dilatation. The common duct is also slightly dilated to the level of the pancreatic head. Gallbladder surgically absent. Pancreas: Interval development of peripancreatic fluid and inflammatory change with heterogeneity and expansion of the pancreatic parenchyma. A focal hypodense region in the anterior pancreatic head (series 2 image 33) was likely present on prior exam and is not convincing for an pancreatic parenchymal collection. Few foci of calcification within the uncinate the pancreatic head likely indicating a history of chronic pancreatitis. No significant pancreatic ductal dilatation. Spleen: Normal. Splenule noted. Splenic artery and vein patent. Adrenal glands: Normal. Kidneys and ureters: Well-defined hypodensity in the right kidney compatible with simple cyst. No hydronephrosis. Normal ureters. Bladder: Mild circumferential bladder wall thickening. No perivesicular inflammatory change. Pelvic organs: Prostate enlargement likely secondary to benign prostatic hyperplasia. Postsurgical changes of vasectomy suspected. Bowel: Diverticulosis with wall thickening of the sigmoid colon likely indicating chronic diverticular disease. Mild wall thickening of the hepatic flexure is most likely secondary. Wall thickening of the descending portion of the duodenum also likely secondary. Appendix normal. No bowel obstruction. Duodenal diverticulum noted posterior to the uncinate process of the pancreas. Peritoneal cavity: Small amount of retroperitoneal fluid in the periduodenal region emanating from the pancreas. No free intraperitoneal fluid or gas. Lymph nodes: No enlarged lymph nodes in the abdomen or pelvis. Vasculature: Atherosclerosis of the normal caliber abdominal aorta. IVC patent. Abdominal wall: Postsurgical changes from prior right hernia repair. Postsurgical changes from ventral abdominal wall hernia repair in the upper gastric and. Musculoskeletal: Degenerative changes of the spine. IMPRESSION: 1. Interval development of interstitial edematous pancreatitis. No focal acute peripancreatic fluid collection. No convincing evidence of necrosis on the current exam. Significant surrounding inflammatory change with wall thickening of the duodenum. 2. Interval development of biliary ductal dilatation could be secondary to inflammatory change in the pancreas. An obstructing common duct calculus cannot be excluded as etiology of both bladder ductal dilatation and pancreatitis. If there is clinical concern, MRCP could be obtained. 3. 3 mm solid pulmonary nodule in the left lower lobe as on prior exam. Follow-up per [employer] Society 2017 recommendations as on prior exam. Please refer to below summary of Fleischner Society 2017 recommendations for follow-up of incidental CT nodules (H aCm et al. Guidelines for management of incidental pulmonary nodules detected on CT images: From the Fleischner Society 2017. Radiology 2017; 284: 228-243.) SOLID NODULES Single nodule; size < 6 mm * Low risk patients: No routine follow-up * High risk patients: Optional CT at 12 months Single nodule; size 6-8 mm * Low risk patients: CT at 6-12 months, then consider CT at 18-24 months * High risk patients: CT at 6-12 months, then at 18-24 months Single nodule; size > 8 mm * Either low or high risk patients: Considered CT at 3 months, PET/CT, or tissue sampling Multiple nodules; size < 6 mm * Low risk patients: No routine follow up * High risk patients: Optional CT at 12 months Multiple nodules; size 6-8 mm * Low risk patients: CT at 3-6 months, then consider CT at 18-24 months * High risk patients: CT at 3-6 months, then at 18-24 months Multiple nodules; size > 8 mm * Low risk patients: CT at 3-6 months, then consider at 18-24 months * High risk patients: CT at 3-6 months, then at 18-24 months Note: These guidelines apply to incidental nodules. These guidelines do not apply to patients younger than 35 years, immunocompromised patients, or patients with cancer. * Low risk patients: Minimal or absent history of smoking and/or other known risk factors * High risk patients: History of smoking, exposure to other carcinogens, emphysema, fibrosis, upper lobe location, family history of lung cancer, etc. * If a nodule up to 8 mm is partly solid or is ground glass, further follow-up is required after 24 months to exclude possible slow growing adenocarcinoma. SUBSOLID NODULES Single ground-glass nodule * Nodule size < 6 mm: No routine follow-up * Nodule size > or = 6 mm: CT at 6-12 months to confirm persistence, then CT every 2 years until 5 years Single part-solid nodule * Nodule size < 6 mm: No routine follow-up * Nodules size > or = 6 mm: CT at 3-6 months to confirm persistence. If unchanged and solid component remains < 6 mm, annual CT should be performed for 5 years Multiple nodules * Nodule size < 6 mm: CT at 3-6 months. If stable, consider CT at 2 and 4 years. * Nodules size > or = 6 mm: CT at 3-6 months. Subsequent management based on the most suspicious nodule(s) Electronically signed by: Raffi George M.D. 06/17/2017 12:20 PM Dictated Date/Time: 06/17/2017 12:10 PM Consultations: Gastro Medication Reconciliation Continued Medications: Doxazosin Mesylate (Cardura) 4 Mg Tab 4 MG PO HS, TAB Hydrocortisone 2.5% (Rectal) (Anusol-Hc 2.5%) 2.5 % Cre 1 APPLN TOP BID PRN for Hemorrhoids for 7 Days, #30 GM Metoprolol Tartrate (Lopressor) (Lopressor) 25 Mg Tab 12.5 MG PO DAILY Multivitamins/Minerals (Mvi With Minerals) Tab 1 TAB PO DAILY, TAB Sildenafil Citrate (Viagra) 100 Mg Tab 100 MG PO PRN, TAB Sulfa/Trimethoprim (Bactrim Ds 800MG/160MG) Tab 1 TAB PO DAILY, #6 TAB Admission Information HPI (per Admitting provider): 67 year old male with PMH of pancreatitis presents to the Emergency Room with complaints of abdominal pain. Pt said that he has been having mid gastric abdominal pain for the past month. He said that he saw GI about 1 month ago and at that time his lipase was normal. Pt said that he woke this morning around 4 AM with epigastric abdominal pain that radiates inferiorly. He rates the pain as a 7/10 currently. he tried Gas-X without relief. Pt said that in the past he had multiple admission for pancreatitis. He said that he received dilaudid in the ER that helped with the pain. Denies any chest pain, palpitation, dizziness, palpitation, SOB, nausea and vomiting. Physical Exam (per Admitting): General Appearance: WD/WN, no apparent distress Head: normocephalic Eyes: PERRL, EOMI ENT: hearing grossly normal Neck: supple, no JVD Respiratory/Chest: lungs clear, normal breath sounds, no respiratory distress Cardiovascular: regular rate, rhythm, no JVD, no murmur Abdomen/GI: normal bowel sounds, + tenderness Back: no CVA tenderness Extremities/Musculoskelatal: no calf tenderness Neurologic/Psych: no motor/sensory deficits, oriented x 3 Skin: warm/dry, no rash Hospital Course Acute pancreatitis Present with epigastric abdominal pain with elevated Lipase Lipase on admission 16K CT abdomen showed interval development of interstitial edematous pancreatitis. No focal acute peripancreatic fluid collection. Interval development of biliary ductal dilatation could be secondary to inflammatory change in the pancreas Continue IVF Dilaudid for pain control and zofran Tolerated clear liquid diet will advanced diet as tolerated Lipase trending down to 3200 --> 465 Gastro consulted recommended to d/c the Bactrim because it can cause pancreatitis Pt will discussed with his dermatology for possible to d/c the Bactrim Elevated Liver Enzymes Liver enzymes trending down check LFT in 1 week Left Lung nodule CT showed 3 mm solid pulmonary nodule in the left lower lobe as on prior exam Monitor as an outpatient HTN continue med stable Hx of folliculitis Has been taking Bactrim daily to prevent flare up consider to discontinue Bactrim DVT px on Lovenox Code status Full Code Disposition Follow up with Dr. Philip on 06/22 @ 11:15 am Total time spent on discharge = 35 minutes This includes examination of the patient, discharge planning, medication reconciliation, and communication with other providers. Discharge Instructions Admission Reason for Admission: Acute Pancreatitis Discharge Discharge Diagnosis / Problem: Acute pancreatitis, Elevated Liver Enzymes, Left Lung nodule Discharge Goals Goal(s): Decrease discomfort, Improve function, Improve disease control Activity Recommendations Activity Limitations: resume your previous activity (as tolerated) . Instructions / Follow-Up Instructions / Follow-Up Follow up with your primary care provider Dr. Philip on 06/22 @ 11:15 am Follow up with your gastroenterology Dr. Piña Discussed with your dermatology to consider to discontinue the Bactrim Check Liver enzymes in 1 week Follow up for the left lung nodule Continue low fat diet for the next few weeks Current Hospital Diet Patient's current hospital diet: Low Fat Diet Discharge Diet Recommended Diet: Low Fat Diet Pending Studies Studies pending at discharge: no Medical Emergencies . Who to Call and When: Medical Emergencies: If at any time you feel your situation is an emergency, please call 911 immediately. . Non-Emergent Contact Non-Emergency issues call your: Primary Care Provider Call Non-Emergent contact if: your pain is worsening, you have any medication questions . . "Provider Documentation" section prepared by Dulce Chadwick. . VTE Core Measure Inpt VTE Proph given/why not?: Enoxaparin (Lovenox)SQ Additional Copies To Sary Philip D.O.
== END 2017-06-19 15:41 | disposition home or self-care (01) | DRG 440 ==
LOC: C.EDB 08:34 → C.MSW 14:49 → ENRESERV 15:41 → CANBEDREQ 16:13
PROVIDERS: ADMIT Internal Medicine; ATTEND Internal Medicine
DX: K85.90 Acute pancreatitis without necrosis or infection, unspecified (principal); K86.1 Other chronic pancreatitis; I10 Essential (primary) hypertension; R91.1 Solitary pulmonary nodule